=== PATIENT | female | born 1990 | race Two or more races ===

== ENCOUNTER 2024-09-30 07:39 | Inpatient (IN) | payer OTHER ==
[~2024-09-30] VITALS: Ht 170.2 cm; Wt 85.0 kg
[2024-09-30] MEDS ORDERED: PRENTAB9 PO (07:58)
[2024-09-30] MEDS ORDERED: HOME MED LIST COMPLETE! XX SCH (08:00)
[2024-09-30 08:13] VITALS: BP 113/62
[2024-09-30 09:04] LABS: PLATELET COUNT, AUTOMATED 188 10^3/uL (150-450)
[2024-09-30] MEDS ORDERED: OXYTOCIN DRIP 30 UNITS in IV 1 EA IV PRN ×3 (09:25)
[2024-09-30] MEDS ORDERED: METHYLERGONOVINE MALEATE 0.2 MG/ML 1 ML VIAL IM PRN (09:25)
[2024-09-30] MEDS ORDERED: OXYTOCIN INJ 10UNITS/ML 1ML VIAL IM PRN (09:25)
[2024-09-30] MEDS ORDERED: OXYTOCIN INJ 10UNITS/ML 1ML VIAL IV PRN (09:25)
[2024-09-30] MEDS ORDERED: TRANEXAMIC ACID INJection 1,000 MG in NS 100 ML IV PRN (09:25)
[2024-09-30] MEDS ORDERED: CARBOPROST TROMETHAMINE 250 MCG/ML AMP IM PRN (09:25)
[2024-09-30] MEDS ORDERED: LR 1,000 ML IV SCH (09:25)
[2024-09-30] MEDS ORDERED: LIDOCAINE 1% MDV 20 ML VIAL INFIL PRN (09:25)
[2024-09-30 09:57] LABS: HIV 1&2 SCREEN NEGATIVE (NEGATIVE)
[2024-09-30 10:05] LABS: HEPATITIS C VIRUS ABY INDEX 0.09 INDEX (<0.8)
[2024-09-30] MEDS: LR 1,000 ML IV SCH (10:32)
[2024-09-30] MEDS: OXYTOCIN DRIP 30 UNITS in IV 1 EA IV SCH (10:32)
[2024-09-30] MEDS: LACTATED RINGER'S 1000 ML IV STA (12:04)
[2024-09-30] MEDS ORDERED: EPIDURAL/PCA KEYS XX PRN (12:35)
[2024-09-30] MEDS: FENTANYL/ROPIVACAINE/NACL BAG 100 ML EPIDURAL SCH (12:35)
[2024-09-30] MEDS ORDERED: LR 500 ML IV PRN (12:35)
[2024-09-30] MEDS ORDERED: ONDANSETRON 4MG 2ML VIAL IV PRN (12:35)
[2024-09-30] MEDS ORDERED: diphenhydrAMINE 50 MG/ML VIAL IV PRN (12:35)
[2024-09-30] MEDS ORDERED: NALOXONE INJ 0.4MG/1ML VIAL IV PRN (12:35)
[2024-09-30] MEDS ORDERED: RHOGAM 300MCG (1500IU) INJ IM SCH (20:15)
[2024-09-30] MEDS ORDERED: MOM 30 ML SUSPENSION UDC PO PRN (20:15)
[2024-09-30] MEDS ORDERED: ACETAMINOPHEN 500 MG TAB PO PRN (20:15)
[2024-09-30 22:25] VITALS: BP 115/65; O2SAT 98
[2024-10-01] MEDS: IBUPROFEN 800 MG TAB PO PRN (05:55)
[2024-10-01 06:11] VITALS: BP 117/57; O2SAT 97
[2024-10-01] MEDS: DIBUCAINE 1% OINTMENT 30 GM TOP PRN (08:05)
[2024-10-01] MEDS: PRENATAL VITAMINS CHEWABLE TABLET PO SCH (08:05)
[2024-10-01] MEDS: DOCUSATE SODIUM 100 MG CAPSULE PO PRN (08:05)
[2024-10-01] MEDS ORDERED: PRENATAL VITAMINS CHEWABLE TABLET PO SCH (09:00)
[2024-10-01 18:05] VITALS: BP 113/58; O2SAT 96
[2024-10-02 06:00] VITALS: BP 120/67; O2SAT 99
[2024-10-02] MEDS: MEASLES,MUMPS,RUBELLA VACCINE INJ (MMR-II) SC.IMMUN ONE (09:00)
== END 2024-10-02 13:10 | disposition home or self-care (01) | DRG 807 ==
LOC: M LDI 07:39 → M OBS 21:45
PROVIDERS: ADMIT Obstetrics & Gynecology; ATTEND Obstetrics & Gynecology
PROC: 10E0XZZ Delivery of Products of Conception, External Approach (ICD-10-PCS; principal; 2024-09-30)
PROC: 0HQ9XZZ Repair Perineum Skin, External Approach (ICD-10-PCS; 2024-09-30)
PROC: 10907ZC Drainage of Amniotic Fluid, Therapeutic from Products of Conception, Via Natural or Artificial Opening (ICD-10-PCS; 2024-09-30)
PROC: 3E033VJ Introduction of Other Hormone into Peripheral Vein, Percutaneous Approach (ICD-10-PCS; 2024-09-30)
DX: O48.0 Post-term pregnancy (principal); Z37.0 Single live birth; Z3A.40 40 weeks gestation of pregnancy; O66.0 Obstructed labor due to shoulder dystocia; O70.0 First degree perineal laceration during delivery